=== PATIENT | female | born 1990 | race Caucasian/White ===

== ENCOUNTER 2017-07-23 16:37 | Inpatient (IN) | payer OTHER ==
[~2017-07-23] VITALS: Ht 170.2 cm; Wt 81.0 kg
[2017-07-30] MEDS ORDERED: OXYTOCIN 30U/ 0.9% NaCL 500ML 500 ML IV ONE (19:59)
[2017-07-30 20:00] VITALS: BP 125/60
[2017-07-30] MEDS ORDERED: ONDANSETRON 2MG/ML, 2ML IVPush PRN (20:00)
[2017-07-30] MEDS ORDERED: CALCIUM CARBONATE 500 MG TAB.CHEW PO PRN (20:00)
[2017-07-30] MEDS ORDERED: FENTANYL PF 100 MCG/2ML IVPush PRN (20:00)
[2017-07-30] MEDS ORDERED: MISOPROSTOL 25 MCG TABLET VG PRN (20:00)
[2017-07-30] MEDS ORDERED: FENTANYL PF 100 MCG/2ML IV PRN (20:00)
[2017-07-30] MEDS ORDERED: MISOPROSTOL 25 MCG TABLET ONE ×2 (20:03→23:35)
[2017-07-30] MEDS ORDERED: NEWBORN KIT ONE (20:03)
[2017-07-30] MEDS ORDERED: OXYTOCIN 30U/ 0.9% NaCL 500ML 500 ML ONE (20:03)
[2017-07-30 20:22] LABS: BASOPHILS # (AUTO) 0.03 x10^3/uL (0-0.1); BASOPHILS % (AUTO) 0 % (0-1); EOSINOPHILS # (AUTO) 0.06 x10^3/uL (0-0.4); EOSINOPHILS % (AUTO) 1 % (1-7); LYMPHOCYTES # (AUTO) 1.99 x10^3/uL (1-3.4); LYMPHOCYTES % (AUTO) 19 % (22-44); MD NO; MEAN CORPUSCULAR HEMOGLOBIN 30.6 pg (27.0-34.8); MEAN CORPUSCULAR HGB CONC 33.8 g/dL (32.4-35.8); MEAN CORPUSCULAR VOLUME 90.6 fL (80-100); MEAN PLATELET VOLUME 9.3 fL (7.4-10.4); MONOCYTES # (AUTO) 1.21 x10^3/uL (0.2-0.8); MONOCYTES % (AUTO) 11 % (2-9); NEUTROPHILS # (AUTO) 7.46 x10^3/uL (1.8-6.8); NEUTROPHILS % (AUTO) 69 % (42-75); PLATELET COUNT 203 x10^3/uL (130-400); RED BLOOD COUNT 3.94 x10^6/uL (3.82-5.3)
[2017-07-30] MEDS: PLEASE ENTER HEIGHT AND WEIGHT MC SCH (20:30)
[2017-07-30] MEDS: D5%-LACTATED RINGERS 1,000 ML IV SCH (20:47)
[2017-07-31] MEDS: D5%-LACTATED RINGERS 1,000 ML IV SCH ×3 (03:59→19:59)
[2017-07-31] MEDS: LACTATED RINGERS 1,000 ML IV SCH ×5 (04:07→19:59)
[2017-07-31] MEDS: PLEASE ENTER HEIGHT AND WEIGHT MC SCH ×3 (04:30→20:30)
[2017-07-31] MEDS ORDERED: OXYTOCIN 30U/ 0.9% NaCL 500ML 500 ML ONE ×2 (16:43→19:25)
[2017-07-31] MEDS ORDERED: SODIUM CITRATE/CITRIC ACID 30 ML UDC ONE (16:43)
[2017-07-31] MEDS ORDERED: LACTATED RINGERS 1,000 ML IV SCH ×2 (16:50→19:28)
[2017-07-31] MEDS ORDERED: OXYTOCIN 30U/ 0.9% NaCL 500ML 500 ML IV SCH (16:51)
[2017-07-31] MEDS ORDERED: CEFAZOLIN PMX 1GM/50ML 50 ML IVPB ONE (17:00)
[2017-07-31] MEDS ORDERED: SODIUM CITRATE/CITRIC ACID 30 ML UDC PO ONE (17:00)
[2017-07-31] MEDS ORDERED: METOCLOPRAMIDE 5 MG/ML, 2ML IV ONE (17:00)
[2017-07-31] MEDS ORDERED: LACTATED RINGERS 1,000 ML IVBOLUS ONE (17:00)
[2017-07-31] MEDS ORDERED: OXYcodone 5 MG/5 ML ORAL.SOL UDC PO PRN (17:30)
[2017-07-31] MEDS ORDERED: hydrALAzine 20 MG/ML, 1ML IV PRN (17:30)
[2017-07-31] MEDS ORDERED: HYDROcodone/APAP 7.5-325MG/15ML UDC PO PRN (17:30)
[2017-07-31] MEDS ORDERED: FENTANYL PF 100 MCG/2ML IV PRN (17:30)
[2017-07-31] MEDS ORDERED: MEPERIDINE/PF 25MG/0.5ML IVPush PRN (17:30)
[2017-07-31] MEDS ORDERED: EPHEDRINE 50 MG/ML, 1ML IVPush PRN (17:30)
[2017-07-31] MEDS ORDERED: HYDROmorphone 1 MG/ML, 1ML IV PRN (17:30)
[2017-07-31] MEDS ORDERED: PROMETHAZINE 25 MG/ML, 1ML IV PRN (17:30)
[2017-07-31] MEDS ORDERED: ONDANSETRON 2MG/ML, 2ML IVPush PRN (17:30)
[2017-07-31] MEDS ORDERED: LABETALOL 5MG/ML, 20ML IV PRN (17:30)
[2017-07-31] MEDS ORDERED: FENTANYL PF 100 MCG/2ML ONE (17:44)
[2017-07-31] MEDS ORDERED: KETOROLAC 30 MG/1 ML ONE (17:44)
[2017-07-31] MEDS ORDERED: ONDANSETRON 2MG/ML, 2ML ONE (17:44)
[2017-07-31] MEDS ORDERED: CEFAZOLIN 1,000 MG ONE (17:44)
[2017-07-31] MEDS ORDERED: DEXAMETHASONE 4 MG/ML, 1ML ONE (17:44)
[2017-07-31] MEDS ORDERED: PHENYLEPHRINE 10 MG/ML ONE ×2 (17:44→17:56)
[2017-07-31] MEDS ORDERED: OXYTOCIN 10 UNITS/ML, 1ML ONE (17:44)
[2017-07-31] MEDS ORDERED: EPHEDRINE 50 MG/ML, 1ML ONE (17:44)
[2017-07-31] MEDS ORDERED: METOCLOPRAMIDE 5 MG/ML, 2ML ONE (17:56)
[2017-07-31] MEDS: KETOROLAC 30 MG/1 ML IM SCH (19:00)
[2017-07-31] MEDS: KETOROLAC 30 MG/1 ML IV SCH (19:00)
[2017-07-31] MEDS: OXYTOCIN 30U/ 0.9% NaCL 500ML 500 ML IV SCH (19:28)
[2017-07-31] MEDS ORDERED: IBUPROFEN 800 MG TABLET PO PRN (19:30)
[2017-07-31] MEDS ORDERED: SIMETHICONE 80 MG CHEW TAB PO PRN (19:30)
[2017-07-31] MEDS ORDERED: CALCIUM CARBONATE 500 MG TAB.CHEW PO PRN (19:30)
[2017-07-31] MEDS ORDERED: METOCLOPRAMIDE 5 MG/ML, 2ML IV PRN (19:30)
[2017-07-31] MEDS ORDERED: OXYcodone/APAP 5/325MG TABLET PO PRN (19:30)
[2017-07-31] MEDS ORDERED: BISACODYL 10 MG SUPP PR PRN (19:30)
[2017-07-31] MEDS ORDERED: ONDANSETRON 2MG/ML, 2ML IV PRN (19:30)
[2017-07-31] MEDS ORDERED: ACETAMINOPHEN 325 MG TABLET PO PRN (19:30)
[2017-07-31] MEDS ORDERED: METHYLERGONOVINE 0.2 MG/ML IM PRN (19:30)
[2017-07-31] MEDS ORDERED: GLYCERIN ADULT SUPP PR PRN (19:30)
[2017-07-31] MEDS ORDERED: MISOPROSTOL 200 MCG TABLET PR PRN (19:30)
[2017-07-31] MEDS ORDERED: CARBOPROST TROMETHAMINE 250 MCG/ML, 1ML IM PRN (19:30)
[2017-07-31] MEDS ORDERED: IBUPROFEN 600 MG TABLET ONE (21:01)
[2017-07-31] MEDS ORDERED: OXYcodone/APAP 5/325MG TABLET ONE (21:01)
[2017-07-31 21:40] VITALS: BP 110/67
[2017-08-01 00:20] VITALS: BP 113/69
[2017-08-01] MEDS: KETOROLAC 30 MG/1 ML IM SCH (01:30)
[2017-08-01] MEDS: OXYcodone/APAP 5/325MG TABLET PO PRN ×4 (02:12→21:37)
[2017-08-01] MEDS: KETOROLAC 30 MG/1 ML IV SCH ×4 (02:12→19:57)
[2017-08-01 02:23] LABS: BASOPHILS # (AUTO) 0.01 x10^3/uL (0-0.1); BASOPHILS % (AUTO) 0 % (0-1); EOSINOPHILS % (AUTO) 0 % (1-7); LYMPHOCYTES # (AUTO) 1.14 x10^3/uL (1-3.4); LYMPHOCYTES % (AUTO) 6 % (22-44); MD NO; MEAN CORPUSCULAR HEMOGLOBIN 30.9 pg (27.0-34.8); MEAN CORPUSCULAR HGB CONC 33.7 g/dL (32.4-35.8); MEAN CORPUSCULAR VOLUME 91.7 fL (80-100); MEAN PLATELET VOLUME 8.6 fL (7.4-10.4); MONOCYTES # (AUTO) 0.92 x10^3/uL (0.2-0.8); MONOCYTES % (AUTO) 5 % (2-9); NEUTROPHILS # (AUTO) 16.02 x10^3/uL (1.8-6.8); NEUTROPHILS % (AUTO) 89 % (42-75); PLATELET COUNT 156 x10^3/uL (130-400); RED BLOOD COUNT 2.93 x10^6/uL (3.82-5.3); RED CELL DISTRIBUTION WIDTH 13.9 % (9.6-15.2)
[2017-08-01 05:00] VITALS: BP 95/63
[2017-08-01] MEDS: OXYTOCIN 30U/ 0.9% NaCL 500ML 500 ML IV SCH ×2 (05:28→15:28)
[2017-08-01] MEDS: LACTATED RINGERS 1,000 ML IV SCH ×2 (05:28→15:28)
[2017-08-01] MEDS: DOCUSATE 100 MG CAPSULE PO PRN ×2 (07:28→19:57)
[2017-08-01 07:45] VITALS: BP 106/57
[2017-08-01] MEDS: PRENATAL VIT/IRON/FA 1 EACH TABLET PO SCH (09:00)
[2017-08-01 14:00] VITALS: BP 110/78
[2017-08-01 16:15] VITALS: BP 110/78
[2017-08-01 20:00] VITALS: BP 103/60
[2017-08-01] MEDS ORDERED: MEASLES,MUMPS&RUBELLA VACC/PF 0.5 ML SQ-VACC ONE (21:00)
[2017-08-02] MEDS: KETOROLAC 30 MG/1 ML IV SCH ×2 (01:49→08:27)
[2017-08-02] MEDS: OXYcodone/APAP 5/325MG TABLET PO PRN ×4 (01:49→20:26)
[2017-08-02] MEDS: PRENATAL VIT/IRON/FA 1 EACH TABLET PO SCH (08:26)
[2017-08-02] MEDS: DOCUSATE 100 MG CAPSULE PO PRN ×2 (08:26→20:27)
[2017-08-02] MEDS ORDERED: OXYcodone/APAP 5/325MG TABLET ONE (14:19)
[2017-08-02] MEDS: IBUPROFEN 600 MG TABLET PO PRN ×2 (14:22→20:26)
[2017-08-02 19:40] VITALS: BP 105/55
[2017-08-03] VITALS: BP 102/50
[2017-08-03] MEDS: OXYcodone/APAP 5/325MG TABLET PO PRN ×3 (00:48→12:57)
[2017-08-03] MEDS: IBUPROFEN 600 MG TABLET PO PRN ×2 (04:44→12:57)
[2017-08-03] MEDS ORDERED: MEASLES,MUMPS&RUBELLA VACC/PF 0.5 ML SQ-VACC ONE (07:30)
[2017-08-03] MEDS: DOCUSATE 100 MG CAPSULE PO PRN (07:39)
[2017-08-03] MEDS: PRENATAL VIT/IRON/FA 1 EACH TABLET PO SCH (07:39)
[2017-08-03 07:55] VITALS: BP 97/60
[2017-08-03] MEDS ORDERED: OXYC-302 PO (09:06)
[2017-08-03] MEDS ORDERED: FERR325T5 PO (09:09)
[2017-08-03] MEDS ORDERED: IBUP-1223 PO (09:11)
== END 2017-08-03 16:20 | disposition home or self-care (01) | DRG 766 ==
LOC: LDIP 07-30 19:55 → 2NW 07-31 21:37
PROVIDERS: ADMIT Student in an Organized Health Care Education/Training Program; ATTEND Student in an Organized Health Care Education/Training Program
PROC: 10D00Z1 Extraction of Products of Conception, Low, Open Approach (ICD-10-PCS; principal; 2017-07-31)
PROC: 3E0234Z Introduction of Serum, Toxoid and Vaccine into Muscle, Percutaneous Approach (ICD-10-PCS; 2017-08-03)
DX: O32.1XX0 Maternal care for breech presentation, not applicable or unspecified (principal); O48.0 Post-term pregnancy; Z37.0 Single live birth; Z3A.40 40 weeks gestation of pregnancy; Z83.3 Family history of diabetes mellitus; Z23 Encounter for immunization
CPT/HCPCS: 36415; 76815; 85025; 86850; 86900; J0690; J1100; J1885; J2405; J3010; J2370; J2590; J2765; J7120; J7121